=== PATIENT | female | born 1950 | race Caucasian/White ===

== ENCOUNTER → 2016-08-11 | Outpatient (CLI) | payer OTHER ==
[~2016-08-11] MED LIST: ASPCH81X PO; CHOL200010 PO; CINN500T PO; GLC500 PO
[2016-08-11 14:18] LABS: ALT/SGPT 58 U/L (12-78); AST/SGOT 49 U/L (15-37); BLOOD UREA NITROGEN 17 mg/dl (7-18); BUN/CREATININE RATIO 17.1 (10-20); CALCIUM 9.1 mg/dl (8.5-10.1); CARBON DIOXIDE 29 mmol/L (21-32); CHLORIDE 102 mmol/L (98-107); GLUCOSE 103 mg/dl (70-99); POTASSIUM 3.9 mmol/L (3.5-5.1); SODIUM 139 mmol/L (136-145)
[2016-08-11 14:20] LABS: ALB/GLOB RATIO 0.9 (0.9-2); ALKALINE PHOSPHATASE 154 U/L (45-117); CHOLESTEROL 211 mg/dl (0-200); HDL CHOLESTEROL 71 mg/dl; LDL CHOLESTEROL CALCULATED 123 mg/dl; TRIGLYCERIDES 86 mg/dl (0-150); VERY LOW DENSITY LIPOPROT CALC 17 mg/dl
[2016-08-11 14:48] LABS: ESTIMATED AVERAGE GLUCOSE 111 mg/dl; HA1C FLAG Normal (Normal)
--- NOTE | 2016-08-18 08:29 | CODING QUERY MEDICAL NECESSITY ---
SUPPORTING DIAGNOSIS NEEDED A supporting diagnosis is required for the test/procedure performed on this patient in order for us to be reimbursed by the patient's insurance. Please provide a supporting diagnosis for the following test/procedure listed below next to the test name along with your signature. *If there is no additional diagnosis for this patient that would support the following test/procedure please document that below next to the test/procedure. Test(s)/Procedure(s) that require a supporting diagnosis: * GLYCATED HEMOGLOBIN DIAGNOSIS: * DOS: 08/11/16 Provider Signature: Date: Thank you Adriana [facility] Information Management Once completed, please kindly fax back to [phone] For questions please call [phone]
== END | disposition home or self-care (01) ==
LOC: C.LABBC 10:14
PROVIDERS: ATTEND Family Medicine
DX: G47.33 Obstructive sleep apnea (adult) (pediatric) (principal); E78.00 Pure hypercholesterolemia, unspecified; R73.03 Prediabetes; Z11.59 Encounter for screening for other viral diseases

== ENCOUNTER → 2016-08-18 | Outpatient (CLI) | payer OTHER ==
[2016-08-18 16:28] LABS: LYME DISEASE AB IGG NEG (NEG)
[2016-08-18 16:29] LABS: LYME DISEASE AB IGM NEG (NEG)
--- NOTE | 2016-08-25 08:37 | CODING QUERY MEDICAL NECESSITY ---
SUPPORTING DIAGNOSIS NEEDED Dr. Carias, A supporting diagnosis is required for the test/procedure performed on this patient in order for us to be reimbursed by the patient's insurance. Please provide a supporting diagnosis for the following test/procedure listed below next to the test name along with your signature. *If there is no additional diagnosis for this patient that would support the following test/procedure please document that below next to the test/procedure. Test(s)/Procedure(s) that require a supporting diagnosis: * ([id number]) VITAMIN D ASSAY DIAGNOSIS: DATE OF SERVICE: 08/18/16 Provider Signature: Date: Thank you Antonio Fagan [facility] Information Management Once completed, please kindly fax back to [phone] For questions please call [phone]
== END | disposition home or self-care (01) ==
LOC: C.LABBC 11:42
PROVIDERS: ATTEND Family Medicine
DX: M25.50 Pain in unspecified joint (principal)

== ENCOUNTER → 2016-10-29 | Day surgery (SDC) | payer OTHER ==
[2016-10-16 12:51] VITALS: Ht 172.7 cm; Wt 78.2 kg
[~2016-10-29] VITALS: Ht 172.7 cm; Wt 78.2 kg
[~2016-10-29] MED LIST changes: +SODIUM CHLORIDE 0.9% 500ML 500 ML IV ONE
--- NOTE | 2016-10-29 14:48 | Endo History and Physical ---
History & Physical Date of Service: Oct 29, 2016. Chief Complaint: SCREENING FOR COLON C.A. Referring Physician: Dr. Le History of Present Illness 66 yo CF who presents for screening colonoscopy. Past Surgical History Hx Cardiac Surgery: No Hx Internal Defibrillator: No Hx Pacemaker: No Hx Abdominal Surgery: Yes (TUBAL LIGATION) Hx of Implantable Prosthesis: No Hx Post-Op Nausea and Vomiting: No Hx Cancer Surgery: No Hx Thoracic Surgery: No Hx Orthopedic: No Hx Urinary Tract Surgery: No Family History None Social History Smoking Status: Former Smoker Hx Substance Use: No Hx Alcohol Use: Yes (RARELY) Allergies Coded Allergies: No Known Allergies (Verified , 10/29/16) Current Medications Reported Home Medications Medications Dose Route/Sig Max Daily Dose Days Date Category Aspirin Chewable (Aspirin) 81 Mg Chew 81 Mg PO QAM 10/16/16 Reported Cinnamon 500 Mg Tab 1 Tab PO BID 10/16/16 Reported Vitamin D (Cholecalciferol) 2,000 Unit Cap 1 Cap PO QAM 10/16/16 Reported Glucophage * (Metformin HCl) 1,000 Mg Tab 1,000 Mg PO BID 09/19/10 Reported Vital Signs Weight (Kilograms): 78.18 Height (Feet): 5 Height (Inches): 8 Date Time Temp Pulse Resp B/P (MAP) Pulse Ox O2 Delivery O2 Flow Rate FiO2 10/29/16 14:13 36.7 85 18 145/89 (107) 94 Room Air Physical Exam General Appearance: WD/WN, no apparent distress Respiratory/Chest: Auscultation: breath sounds normal Cardiovascular: Heart Auscultation: RRR Abdomen: Bowel Sounds: normal Inspection & Palpation: soft, non-distended, no tenderness, guarding & rebound Assessment and Plan Assessment: 66 yo CF who presents for screening colonoscopy. Plan: Proceed with colonoscopy.
--- NOTE | 2016-10-29 15:08 | Discharge Instructions ---
Endoscopy Patient Instructions Date / Procedure(s) Performed Oct 29, 2016. Colonoscopy Allergy Information Coded Allergies: No Known Allergies (Verified , 10/29/16) Discharge Date / Findings Oct 29, 2016. Diverticulosis Internal hemorrhoids Medication Instructions Stopped Medication(s): ASPIRIN LAST DOSE 10/26/16 METFORM LAST DOSE 10/27/16 OK to resume all medications today as prescribed Medications Dose Route/Sig Max Daily Dose Days Date Category Aspirin Chewable (Aspirin) 81 Mg Chew 81 Mg PO QAM 10/16/16 Reported Cinnamon 500 Mg Tab 1 Tab PO BID 10/16/16 Reported Vitamin D (Cholecalciferol) 2,000 Unit Cap 1 Cap PO QAM 10/16/16 Reported Glucophage * (Metformin HCl) 1,000 Mg Tab 1,000 Mg PO BID 09/19/10 Reported Provider Instructions Activity Restrictions - No exercising or heavy lifting for 24 hours. - Do not drink alcohol the day of the procedure. - Do not drive a car or operate machinery until the day after the procedure. - Do not make any important decisions or sign important papers in 24 hours after the procedure. Following Day: - Return to full activity which may include returning to work/school. Diet Start your diet with liquids and light foods (jello, soup, juice, toast). Then eat your usual diet if not nauseated. Treatment For Common After Affects For mild abdominal pain, bloating, or excessive gas: - Rest - Eat lightly - Lie on right side Follow-Up Information Follow-up with as scheduled Anesthesia Information What You Should Know You have had a procedure that required some medicine to reduce anxiety and discomfort. This treatment is called moderate sedation. After receiving the treatment, you may be sleepy, but you will be able to breathe on your own. The effects of the treatment may last for several hours. Follow these instructions along with Activity/Diet recommendations noted above: * Do NOT do anything where dizziness or clumsiness would be dangerous. * Rest quietly at home today, then you can be up and about tomorrow. * Have a responsible person stay with you the rest of today. * You may have had an I.V. today. If so, you may take the dressing off later today. Recommendations Call your doctor if: * Trouble breathing * Continuous vomiting for more than 24 hours * Temperature above 101 degrees * Severe abdominal pain or bloating * Pain not relieved by pain medicine ordered * There is increased drainage or redness from any incision * A large amount of rectal bleeding greater than 2-3 tablespoons. (If you had a polyp/s removed or have hemorrhoids, a small amount of blood - from the rectum is to be expected.) * You have any unanswered questions or concerns. IN THE EVENT OF A SERIOUS EMERGENCY, GO TO THE NEAREST EMERGENCY ROOM Your discharge instructions were prepared by provider Junior Savage. Patient Instructions Signature Page Pamela Storey Patient (or Guardian) Signature/Date: I have read and understand the instructions given to me by my caregivers. Caregiver/RN/Doctor Signature/Date: The above-named patient and/or guardian has received patient instructions on this date. + Original Patient Signature Page (only) stays with chart. Please make copy for patient.
--- NOTE | 2016-10-29 15:12 | GI REPORT ---
Procedure Date: 10/29/2016 2:44 PM THIS REPORT HAS BEEN AMENDED Addendum Number: 1 Addendum Date: 11/08/2016 4:14:38 PM No specimens were obtained during this procedure, and therefore, no pathology is pending. Repeat colonoscopy in 10 years for screening. Procedure: Colonoscopy Indications: Screening for colorectal malignant neoplasm Medicines: Monitored Anesthesia Care Complications: No immediate complications. Estimated Blood Loss: Estimated blood loss: none. Procedure: Pre-Anesthesia Assessment: - Prior to the procedure, a History and Physical was performed, and patient medications and allergies were reviewed. The patient's tolerance of previous anesthesia was also reviewed. The risks and benefits of the procedure and the sedation options and risks were discussed with the patient. All questions were answered, and informed consent was obtained. Prior Anticoagulants: The patient has taken aspirin, last dose was 3 days prior to procedure. ASA Grade Assessment: II - A patient with mild systemic disease. After reviewing the risks and benefits, the patient was deemed in satisfactory condition to undergo the procedure. After I obtained informed consent, the scope was passed under direct vision. Throughout the procedure, the patient's blood pressure, pulse, and oxygen saturations were monitored continuously. The scope was introduced through the anus and advanced to the terminal ileum. The colonoscopy was performed without difficulty. The patient tolerated the procedure well. The quality of the bowel preparation was good. The terminal ileum, ileocecal valve, appendiceal orifice, and rectum were photographed. Findings: Multiple small-mouthed diverticula were found in the sigmoid colon. Non-bleeding internal hemorrhoids were found during retroflexion. The hemorrhoids were small. Impression: - Diverticulosis in the sigmoid colon. - Non-bleeding internal hemorrhoids. - No specimens collected. Recommendation: - Resume previous diet. - Continue present medications. - Repeat colonoscopy for surveillance based on pathology results. - Return to primary care physician as previously scheduled. Junior Savage, DO 10/29/2016 3:11:58 PM This report has been signed electronically. Note Initiated On: 10/29/2016 2:44 PM I attest to the content of the Intraoperative Record and orders documented therein, exceptions below Junior KongRalph Savage, DO 11/08/2016 4:15:09 PM This report has been signed electronically.
[2016-10-29 15:46] VITALS: BP 151/80; PULSE 69; O2SAT 96
--- NOTE | 2016-10-29 15:49 | Anesthesiology Progress Note ---
Anesthesia Post Op Note Date & Time Oct 29, 2016 at 15:49 Vital Signs Pain Intensity: 0 Vital Signs Past 12 Hours Date Time Temp Pulse Resp B/P (MAP) Pulse Ox O2 Delivery O2 Flow Rate FiO2 10/29/16 15:46 69 20 151/80 (103) 96 Room Air 10/29/16 15:28 74 20 152/80 (104) 96 Room Air 10/29/16 15:13 80 20 115/62 (79) 96 Room Air 10/29/16 14:13 36.7 85 18 145/89 (107) 94 Room Air Notes Mental Status: alert / awake / arousable, participated in evaluation Pt Amnestic to Procedure: Yes Nausea / Vomiting: adequately controlled Pain: adequately controlled Airway Patency, RR, SpO2: stable & adequate BP & HR: stable & adequate Hydration State: stable & adequate Anesthetic Complications: no major complications apparent
== END | disposition home or self-care (01) ==
LOC: C.GI 14:00
PROVIDERS: ATTEND Internal Medicine
DX: Z12.11 Encounter for screening for malignant neoplasm of colon (principal); K57.30 Diverticulosis of large intestine without perforation or abscess without bleeding; K64.8 Other hemorrhoids; G47.33 Obstructive sleep apnea (adult) (pediatric); E11.9 Type 2 diabetes mellitus without complications; M19.90 Unspecified osteoarthritis, unspecified site; Z98.51 Tubal ligation status; Z87.891 Personal history of nicotine dependence; Z68.26 Body mass index [BMI] 26.0-26.9, adult

== ENCOUNTER → 2017-09-20 | Outpatient (CLI) | payer OTHER ==
[~2017-09-20] MED LIST changes: -SODIUM CHLORIDE 0.9% 500ML 500 ML IV ONE
[2017-09-20 13:46] LABS: HEMOGLOBIN A1C 5.6 % (4.5-5.6)
[2017-09-20 13:50] LABS: ALT/SGPT 53 U/L (12-78); BLOOD UREA NITROGEN 17 mg/dl (7-18); CALCIUM 8.7 mg/dl (8.5-10.1); CARBON DIOXIDE 27 mmol/L (21-32); CREATININE 0.93 mg/dl (0.60-1.20); GLUCOSE 99 mg/dl (70-99); POTASSIUM 3.7 mmol/L (3.5-5.1); SODIUM 137 mmol/L (136-145)
[2017-09-20 13:53] LABS: CHOLESTEROL 240 mg/dl (0-200); LDL CHOLESTEROL CALCULATED 155 mg/dl
== END | disposition home or self-care (01) ==
LOC: C.LABBC 10:05
PROVIDERS: ATTEND Family Medicine
DX: E78.00 Pure hypercholesterolemia, unspecified (principal); R73.03 Prediabetes; R74.8 Abnormal levels of other serum enzymes

== ENCOUNTER 2021-11-05 03:20 | Observation (INO) ==
[2021-11-05 03:49] LABS: Basophils # (auto) 0.03 K/uL (0-0.2); Basophils % (auto) 0.4 %; Eosinophils # (auto) 0.19 K/uL (0-0.5); Eosinophils % (auto) 2.7 %; Hematocrit (blood only) 45.4 % (37-47); Hemoglobin 15.2 g/dL (12.0-16.0); Immature Granulocytes # (auto) 0.01 K/uL (0.00-0.02); Immature Granulocytes % (auto) 0.1 %; Lymphocytes # (auto) 2.23 K/uL (1.2-3.4); Lymphocytes % (auto) 31.4 %; Mean Corpuscular Hemoglobin 27.7 pg (25-34); Mean Corpuscular Hgb Conc 33.5 g/dL (32-36); Mean Corpuscular Volume 82.8 fL (80-100); Mean Platelet Volume 9.9 fL (7.4-10.4); Monocytes # (auto) 0.68 K/uL (0.11-0.59); Monocytes % (auto) 9.6 %; Neutrophils # (auto) 3.97 K/uL (1.4-6.5); Neutrophils % (auto) 55.8 %; Platelet Count 227 K/uL (130-400); RDW Coefficient of Variation 14.5 % (11.5-14.5); RDW Standard Deviation 44.1 fL (36.4-46.3); Red Blood Count 5.48 M/uL (4.2-5.4); White Blood Count 7.11 K/uL (4.8-10.8)
[2021-11-05] MEDS ORDERED: NITROGLYCERIN SL 0.4 MG/TAB TAB SL STA (03:51)
--- NOTE | 2021-11-05 04:05 | Emergency Department Note ---
History of Present Illness General Chief complaint: Chest Pain Stated complaint: CHEST PRESSURE RIGHT SIDE AND CENTER Time Seen by Provider: 11/05/21 03:41 History of Present Illness Maximum Pain Intensity: 5 71-year-old female presents emergency department with substernal chest pressure that woke her from sleep it is on the right side is nonradiating there is no associated nausea vomiting shortness of breath or abdominal pain. She states that she took a full aspirin prior to arrival. Patient states no history of the same. There are no other mitigating or alleviating factors Home Medications Medication Instructions Recorded Confirmed Type aspirin 81 mg tablet,delayed 81 mg PO DAILY #30 tab 03/08/19 06/12/21 Rx release cholecalciferol (vitamin D3) 50 2,000 units PO DAILY #30 cap 03/08/19 06/12/21 Rx mcg (2,000 unit) capsule cinnamon bark 500 mg capsule 1,000 mg PO DAILY #30 cap 03/08/19 06/12/21 Rx (Cinnamon) multivitamin 1 tab PO DAILY 04/30/20 06/12/21 History metformin 1,000 mg tablet 1,000 mg PO BID #60 tab 09/03/21 Rx Allergies Allergy/AdvReac Type Severity Reaction Status Date / Time No Known Allergies Allergy Verified 06/12/21 07:49 Past Med/Surg History Medical History (Updated 11/05/21 @ 04:44 by Bubba Wick DO) Diverticulosis Hypercholesterolemia Laryngopharyngeal reflux (LPR) JAKE (obstructive sleep apnea) Prediabetes Sensorineural hearing loss (SNHL) of both ears Surgical History (Updated 06/12/21 @ 08:15 by Мария Le MD) History of palate surgery and uvula History of tubal ligation Status post cataract extraction [place] teeth extracted Family History Father Myocardial infarction Diabetes Heart disease Mother Parkinson disease Denies family history of Ovarian cancer Prostate cancer Breast cancer Colorectal cancer Social History Smoking Status: Never smoker Tobacco Type: Cigarettes Age Started Using Tobacco: 14; Age Quit Using Tobacco: 39; packs per day: 1; Years Smoked: 25; Cigarettes Per Day: 40; Number of Years Since Quit: 31; Second Hand Exposure: Yes; Hx Alcohol Use: Yes Alcohol type: wine Alcohol Intake Frequency: Monthly or Less Hx Substance Use: No Preferred Language: [place] Citizen Communication Ability: Effective Visual Impairment: No Limitations Hearing Ability: Hard of Hearing Outsole Splicer Required: No marital status: Current Living Situation: Spouse current occupational status: retired current occupation: Former teacher How many Children do You have: 2 Feels Safe at Home: Yes Childhood Exposure to Second-Hand Smoke: Yes caffeine: Yes during the past year weight has: remained stable Dental Care, Regularly: Yes Physical Activity Frequency: Daily Seatbelt Use: always Sunscreen Use: Yes Assistive Devices: Glasses Review of Systems A total of 10 systems reviewed and were otherwise negative Constitutional: no fever Respiratory: no cough and no dyspnea Cardiovascular: + chest pain Gastrointestinal: no abdominal pain Physical Exam Vital Signs Vital Signs - 24 hr 11/05/21 03:23 11/05/21 03:37 11/05/21 03:39 Temperature 36.6 C Temperature Source Temporal Artery Scan Pulse Rate 72 66 Pulse Rate [Finger] 66 Respiratory Rate 20 17 Respiratory Effort / Characteristics Non-Labored Spontaneous Respiratory Depth Normal Blood Pressure 218/112 H Blood Pressure [Right Arm] 215/106 H Blood Pressure Mean 147 Blood Pressure Mean [Right Arm] 142 Blood Pressure Position Sitting Blood Pressure Position [Right Arm] Lying Pulse Oximetry 97 97 97 Oxygen Delivery Method Room Air Room Air Room Air Sepsis Recent Fever Within 48 Hours No Sepsis New/Unexplained Change in Mental Status N/A Sepsis Action Taken by Nursing No Action Required 11/05/21 03:54 11/05/21 04:01 11/05/21 04:20 Temperature Temperature Source Pulse Rate Pulse Rate [Finger] 61 73 Respiratory Rate 18 18 Respiratory Effort / Characteristics Non-Labored Spontaneous Non-Labored Spontaneous Respiratory Depth Normal Normal Blood Pressure Blood Pressure [Right Arm] 210/120 H 164/102 H 153/96 H Blood Pressure Mean Blood Pressure Mean [Right Arm] 150 122 115 Blood Pressure Position Blood Pressure Position [Right Arm] Lying Lying Lying Pulse Oximetry 97 96 Oxygen Delivery Method Room Air Room Air Sepsis Recent Fever Within 48 Hours Sepsis New/Unexplained Change in Mental Status Sepsis Action Taken by Nursing 11/05/21 05:21 Temperature Temperature Source Pulse Rate Pulse Rate [Finger] 63 Respiratory Rate 17 Respiratory Effort / Characteristics Non-Labored Spontaneous Respiratory Depth Normal Blood Pressure Blood Pressure [Right Arm] 138/76 Blood Pressure Mean Blood Pressure Mean [Right Arm] 96 Blood Pressure Position Blood Pressure Position [Right Arm] Lying Pulse Oximetry 96 Oxygen Delivery Method Room Air Sepsis Recent Fever Within 48 Hours Sepsis New/Unexplained Change in Mental Status Sepsis Action Taken by Nursing VITAL SIGNS - Vital signs and nursing notes were reviewed. GENERAL - no acute distress. Communicates well with provider and answers questions appropriately. SKIN - Without rashes. HEAD - NC/AT. EYES - PERRL with EOMI bilaterally. Sclera anicteric. Palpebral conjunctiva pink and moist with no injection noted. EARS - No deformities of external structures noted on gross examination bilaterally. NOSE - Midline and without cyanosis. No epistaxis or purulent drainage noted. Septum midline without deviation or septal hematoma noted. MOUTH/OROPHARYNX - Without perioral cyanosis. Buccal mucosa pink and moist NECK - Neck with FROM. Supple to palpation. LUNGS - Chest wall symmetric without accessory muscle use, intercostals retractions, or central cyanosis. Normal vesicular breath sounds CTA B/L. No wheezes, rales, or rhonchi appreciated. CARDIAC - RRR with S1/S2. No murmur, rubs, or gallops appreciated. ABDOMEN - Abdominal contour soft without pulsations or visible masses. BS normoactive all four quadrants. No tenderness, palpable masses, hepatosplenomega ly, or ascites noted. EXTREMITIES - No clubbing or peripheral cyanosis. No pretibial edema present.+ 5/5 strength noted in UE/LE bilaterally. NEUROLOGIC - Cranial nerves II through XII grossly intact. Sensory intact to light touch throughout. PSYCH - A&Ox3 and cooperates fully with examiner. Pt is very pleasant and interacts well with examiner. Course Reevaluation(s) Reevaluation #1: Patient had taken aspirin prior to arrival, patient was given 1 nitro sublingual her blood pressure is 153/79, resting in no current distress. Time: 05:35 Consultations Consultation #1: Discussed with the hospitalist from [facility] for admission at 5 AM Administered Medications Discontinued Medications Nitroglycerin (Nitroglycerin Sl 0.4 Mg/Tab Tab) 0.4 mg SL NOW STA Stop: 11/05/21 03:52 Last Admin: 11/05/21 03:55 Dose: 0.4 mg Documented by: [id number] Medical Decision Making Medical Records Attestation: I reviewed the patient's medical records. Laboratory Data Attestation: I reviewed the patient's lab results. Result diagrams: 11/05/21 03:32 11/05/21 03:32 Lab Results 11/05/21 11/05/21 11/05/21 Range/Units 03:32 03:32 04:47 WBC 7.11 (4.8-10.8) K/uL RBC 5.48 H (4.2-5.4) M/uL Hgb 15.2 (12.0-16.0) g/dL Hct 45.4 (37-47) % MCV 82.8 (80-100) fL MCH 27.7 (25-34) pg MCHC 33.5 (32-36) g/dL RDW Std Deviation 44.1 (36.4-46.3) fL RDW Coeff of [place]ha 14.5 (11.5-14.5) % Plt Count 227 (130-400) K/uL MPV 9.9 (7.4-10.4) fL Immature Gran % (Auto) 0.1 % Neut % (Auto) 55.8 % Lymph % (Auto) 31.4 % [place] % (Auto) 9.6 % Eos % (Auto) 2.7 % Baso % (Auto) 0.4 % Neut # (Auto) 3.97 (1.4-6.5) K/uL Lymph # (Auto) 2.23 (1.2-3.4) K/uL [place] # (Auto) 0.68 H (0.11-0.59) K/uL Eos # (Auto) 0.19 (0-0.5) K/uL Baso # (Auto) 0.03 (0-0.2) K/uL Immature Gran # (Auto) 0.01 (0.00-0.02) K/uL Sodium 138 (136-145) mmol/L Potassium 3.6 (3.5-5.1) mmol/L Chloride 103 (98-107) mmol/L Carbon Dioxide 27 (21-32) mmol/L Anion Gap 8 (3-11) BUN 19 (6-23) mg/dl Creatinine 0.90 (0.6-1.2) mg/dl Est Cr Clr Drug Dosing 64.1 ml/min Est GFR ( Amer) 75.1 ml/min Est GFR (Non-Af Amer) 64.8 ml/min BUN/Creatinine Ratio 21.1 H (10-20) Glucose 110 H (70-99(Fasting)) mg/dl Calcium 9.1 (8.5-10.1) mg/dl Total Bilirubin 0.6 (0.2-1.0) mg/dl AST 38 (13-39) U/L ALT 31 (7-52) U/L Alkaline Phosphatase 92 (34-104) U/L Troponin I High Sens 8.1 (0-14) pg/ml Total Protein 7.9 (6.0-8.3) gm/dl Albumin 4.3 (3.4-5.0) gm/dl Globulin 3.6 (2.5-4.0) gm/dl Albumin/Globulin Ratio 1.2 (0.9-2) Lipase 51 (11-82) U/L SARS-CoV-2, RNA, NAAT NEGATIVE (NEGATIVE) Imaging Data Attestation: I personally reviewed and interpreted this imaging study as follows: My Impression: Chest x-ray interpreted by me normal mediastinum negative for infiltrate negative for pneumothorax no effusions ECG Data Attestation: I personally reviewed and interpreted this ECG as follows: Additional Comments: EKG interpreted by me normal sinus rhythm rate of [address]-T change no obvious ST segment elevation or depression normal intervals normal axis MDM Narrative Medical decision making differential diagnosis includes angina unstable angina acute coronary syndrome acute NH musculoskeletal chest pain GERD reflux. Plan is to check cardiac labs, admit Impression & Plan Chest pain, Hypertension Discharge Plan Visit Data Chief Complaint: Chest Pain Stated Complaint: CHEST PRESSURE RIGHT SIDE AND CENTER ED Provider: Bubba Wick Discharge Problem: Chest pain, Hypertension Patient Disposition: Being Evaluated by Hospitalist Forms Stand Alone Forms: My [facility] Prescriptions Prescriptions: No Action aspirin 81 mg tablet,delayed release (DR/EC) 81 mg PO DAILY Qty: 30 RF: 2 cinnamon bark [Cinnamon] 500 mg capsule 1,000 mg PO DAILY Qty: 30 RF: 0 cholecalciferol (vitamin D3) 2,000 unit capsule 2,000 units PO DAILY Qty: 30 RF: 0 metformin 1,000 mg tablet 1,000 mg PO BID Qty: 60 RF: 5 multivitamin Tablet 1 tab PO DAILY RF: 0 Referrals Referrals: Мария Le MD [Primary Care Provider] - Discharge Problem: Chest pain Qualifiers: Chest pain type: precordial pain Qualified Code(s): R07.2 - Precordial pain Hypertension Qualifiers: Hypertension type: unspecified Qualified Code(s): I10 - Essential (primary) hypertension
[2021-11-05 04:14] LABS: Albumin Globulin Ratio 1.2 (0.9-2); Albumin Level 4.3 gm/dl (3.4-5.0); BUN Creatinine Ratio 21.1 (10-20); Bilirubin,Total 0.6 mg/dl (0.2-1.0); Calcium 9.1 mg/dl (8.5-10.1); Creatinine Clr Calc Pharmacy 64.1 ml/min; Est GFR (African American) 75.1 ml/min; Est GFR (Non-African American) 64.8 ml/min; Globulin 3.6 gm/dl (2.5-4.0); Potassium 3.6 mmol/L (3.5-5.1); Total Protein 7.9 gm/dl (6.0-8.3)
[2021-11-05 04:16] LABS: Troponin I High Sensitivity 8.1 pg/ml (0-14)
--- NOTE | 2021-11-05 04:49 | History & Physical Report ---
Date of Service November 05, 2021 Assessment & Plan (1) Chest pain: Plan: 71yo female with a history of HTN, HLD, prediabetes, and JAKE presents with a one-day history of central chest pressure that radiates to her right abdomen and flank. Chest pressure Four-hour history of chest pressure in a patient with multiple cardiac risk factors including HTN, HLD, JAKE, and positive family history BP on arrival 218/112 which has since improved to 130s/70s, vitals otherwise stable upon arrival to ED and since EKG: NSR, no overt ischemic change appreciated Initial hsTroponin negative, repeat pending Electrolytes wnl Patient already took ASA prior to arrival; patient was given nitrostat in the ED but says her symptoms persisted about an hour before spontaneously resolving Admit to med/tele Nitropaste prn Continue to monitor HTN As above, BP 218/112 on admission, has since improved to 130s/70s Not on antihypertensives at home Continue aspirin; outpatient follow-up recommended HLD: not currently treated, but is actively followed by patient's PCP; outpatient follow-up recommended Prediabetes: metformin held on admission; will hold off on ISS because patient's most recent A1c was 5.6% (05/2021) JAKE: CPAP intolerant, per patient; outpatient follow-up recommended, could consider the Inspire device FEN: heart-healthy diet Code status: DNR/DNI DVT ppx: SCDs Dispo: med/tele (2) Hypertension: (3) Hypercholesterolemia: (4) JAKE (obstructive sleep apnea): (5) Prediabetes: History of Present Illness Primary Care Provider: Мария Le MD 71yo female with a history of HTN, HLD, prediabetes, and JAKE presents with a four-hour history of central chest pressure. The chest pressure woke patient up from sleep around 01:30 today. Patient describes it as a dull pressure under her right breast which does not radiate. Rates it a 4/5 in intensity. Patient had a brief episode of nausea and dry heaving but this resolved after about a minute. Patient denies other symptoms including fever, chills, headache, change in vision, SOB, abdominal pain, diarrhea, lightheadedness, weakness, dizziness, or other symptoms. Patient took ASA 325mg prior to arrival. Patient notes her father had a quadruple-bypass surgery but denies any other family cardiac history. At the time of interview (04:45) patient notes her symptoms have completely resolved. Allergies Allergy/AdvReac Type Severity Reaction Status Date / Time No Known Allergies Allergy Verified 11/05/21 06:19 Home Medications Medication Instructions Recorded Confirmed Type multivitamin 1 tab PO QAM 04/30/20 11/05/21 History aspirin 81 mg tablet,delayed 81 mg PO QDD 11/05/21 11/05/21 History release cholecalciferol (vitamin D3) 50 2,000 units PO QAM 11/05/21 11/05/21 History mcg (2,000 unit) capsule cinnamon bark 500 mg capsule 1,000 mg PO QAM 11/05/21 11/05/21 History (Cinnamon) metformin 1,000 mg tablet 1,000 mg PO BIDM 11/05/21 11/05/21 History Past Med/Surg History Medical History (Updated 11/05/21 @ 04:44 by Bubba Wick DO) Diverticulosis Hypercholesterolemia Laryngopharyngeal reflux (LPR) JAKE (obstructive sleep apnea) Prediabetes Sensorineural hearing loss (SNHL) of both ears Surgical History (Updated 06/12/21 @ 08:15 by Мария Le MD) History of palate surgery and uvula History of tubal ligation Status post cataract extraction [place] teeth extracted Family History Father Myocardial infarction Diabetes Heart disease Mother Parkinson disease Denies family history of Ovarian cancer Prostate cancer Breast cancer Colorectal cancer Social History Smoking Status: Never smoker Tobacco Type: Cigarettes Age Started Using Tobacco: 14; Age Quit Using Tobacco: 39; packs per day: 1; Years Smoked: 25; Cigarettes Per Day: 40; Number of Years Since Quit: 31; Second Hand Exposure: Yes; Hx Alcohol Use: Yes Alcohol type: wine Alcohol Intake Frequency: Monthly or Less Hx Substance Use: No Preferred Language: Ukrainian Communication Ability: Effective Visual Impairment: No Limitations Hearing Ability: Hard of Hearing Apparel Cutter Required: No marital status: Current Living Situation: Spouse current occupational status: retired current occupation: Former teacher How many Children do You have: 2 Feels Safe at Home: Yes Childhood Exposure to Second-Hand Smoke: Yes caffeine: Yes during the past year weight has: remained stable Dental Care, Regularly: Yes Physical Activity Frequency: Daily Seatbelt Use: always Sunscreen Use: Yes Assistive Devices: Glasses Physical Exam Physical Exam: Constitutional: well-appearing, no acute distress CV: regular rhythm, no murmur appreciated, extremities well-perfused, no LE edema Resp: CTABL, no wheezes/rales/rhonchi appreciated, no increased work of breathing GI: soft, nondistended, nontender, BS normoactive MSK: no gross deformities appreciated Skin: warm, dry, no rash appreciated Neuro: alert, oriented, no focal neurologic deficit appreciated Results & Data Results & Data ([facility]) Vital Signs (Past 12 Hours) Vital Signs Temp Pulse Pulse Resp BP BP Pulse Ox 11/05/21 04:20 153/96 H 11/05/21 04:01 73 18 164/102 H 96 11/05/21 03:54 61 18 210/120 H 97 11/05/21 03:39 97 11/05/21 03:37 66 66 17 215/106 H 97 11/05/21 03:23 36.6 C 72 20 218/112 H 97 Supervising Physician Co-Signing Physician Notes Attending addendum: I have physically seen this patient, have supervised the medical residents activities, and agree with the H&P unless as otherwise noted. Assessment and Plan: Atypical chest pain/hypertension- The patient will be admitted to telemetry for serial cardiac enzymes, serial EKG's, cardiac rhythm monitoring and a 2-D echocardiogram with Dopplers. Additional risk factors including hyperlipidemia and prediabetes Aspirin 81 mg daily Nitroglycerin sublingual every 5 minutes as needed chest pain Check a fasting lipid panel and hemoglobin A1c Remaining orders and notations as noted Resident Activity Tracking Resident Involvement: Resident Care Provided and Production Operator Coverage Note Care Provided: Adult Hospital Medicine (1) Chest pain Chest pain type: precordial pain Qualified Code(s): R07.2 - Precordial pain (2) Hypertension Hypertension type: unspecified Qualified Code(s): I10 - Essential (primary) hypertension
[2021-11-05] MEDS ORDERED: ONDANSETRON INJ 2 MG/ML 2 ML VIAL IV PRN (06:37)
[2021-11-05] MEDS ORDERED: ACETAMINOPHEN 325 MG TAB PO PRN (06:37)
--- NOTE | 2021-11-05 07:02 | XRay Report ---
XR chest 1V portable CLINICAL HISTORY: Atypical chest pain TECHNIQUE: Single frontal radiograph of the chest was obtained. Comparison: None available at the time of this dictation. FINDINGS: No lines and tubes are seen. The cardiomediastinal silhouette is normal. The lungs are clear. No evid ence of pleural effusion or pneumothorax. IMPRESSION: No acute chest disease. ACT 112: Negative or not required by law. Electronically signed by: Kaushal Nunn M.D. 11/05/2021 7:00 AM
--- NOTE | 2021-11-05 07:28 | Discharge Summary ---
Date of Service November 05, 2021 Admission HPI Per Admitting Provider 71yo female with a history of HTN, HLD, prediabetes, and JAKE presents with a four-hour history of central chest pressure. The chest pressure woke patient up from sleep around 01:30 today. Patient describes it as a dull pressure under her right breast which does not radiate. Rates it a 4/5 in intensity. Patient had a brief episode of nausea and dry heaving but this resolved after about a minute. Patient denies other symptoms including fever, chills, headache, change in vision, SOB, abdominal pain, diarrhea, lightheadedness, weakness, dizziness, or other symptoms. Patient took ASA 325mg prior to arrival. Patient notes her father had a quadruple-bypass surgery but denies any other family cardiac history. At the time of interview (04:45) patient notes her symptoms have completely resolved. Admission Exam Per Admitting Provider Constitutional: well-appearing, no acute distress CV: regular rhythm, no murmur appreciated, extremities well-perfused, no LE edema Resp: CTABL, no wheezes/rales/rhonchi appreciated, no increased work of breathing GI: soft, nondistended, nontender, BS normoactive MSK: no gross deformities appreciated Skin: warm, dry, no rash appreciated Neuro: alert, oriented, no focal neurologic deficit appreciated Principal Diagnosis noncardiac chest pain Discharge Exam General: 71-year old female who is alert, oriented, and appears in no acute distress. HEENT: NCAT. - Eyes - Sclera are white, anicteric, and without injection. - Mouth - MMM - Neck - supple, no appreciable JVD Cardiac: Normal rate and regular rhythm; S1 and S2 present with no murmurs, rubs, or gallops. Pulmonary: Good respiratory effort with symmetric expansion of the chest. No use of accessory muscles. Lungs were clear to auscultation bilaterally with no crackles or wheezes. Abdominal: Normoactive bowel sounds. Abdomen was soft, nondistended, and non- tender to palpation. Ness's negative. Chest Wall/Skin: public health technician desulfurizer hand present for exam's entirety after patient consented. Examination of the R breast does not reveal focal abnormalities. The intertriginous area is without TTP over the ribs or with any dermatologic abnormalities. Extremities: Upper and lower extremities are warm and well perfused. No peripheral edema in the lower extremities bilaterally Psych: Well-developed, well-nourished, appropriately dressed for occasion. Behavior is cooperative and appropriate. Affect is WNL. Insight is appropriate. Discharge Data Allergies Allergy/AdvReac Type Severity Reaction Status Date / Time No Known Allergies Allergy Verified 11/05/21 06:19 Consultations 11/05/21 05:08 ED Decision to Admit Stat Hospital Course (1) Chest pain: 71yo female with a history of HTN, HLD, prediabetes, and JAKE presents with a one-day history of RIGHT chest wall pressure that radiated to her flank; during her brief stay, her cardiac work-up (ECGs, troponins were negative). Chest Wall Discomfort Patient reports waking frequently in the night d/t JAKE (does not use CPAP); awoke with R chest wall pain at the inferiormost rib-area along the midclavicular line Four-hour history of chest pressure in a patient with multiple cardiac risk factors including HTN, HLD, JAKE, and positive family history Work-up as follows: BP on arrival 218/112 which lowered back to normal during stay EKG: NSR, no overt ischemic change appreciated; unchanged compared to 2011 high-sensitivity troponin negative x 2 Does report that pain resolved with nitroglycerin given in the ED HEART Score 3 -- low risk for MACE Stress TTE in 2019 reviewed: inferior ST changes with exertion and +HTN, ho wever negative stress TTE Lower suspicion for cardiac etiology given location of pain, negative troponin x 2, absence of ECG changes. Given pain is completely resolved and there were no focal findings on physical exam (skin, palpation), difficult to say whether or not costochondritis may have been a factor -- but considered given reported location. Noted that patient has h/o cholelithiasis; biliary colic a possibility as well. Patient also reports being under significant stress lately with having an NV, son going through divorce - stress/anxiety response also considered. Will attempt to arrange stress TTE (to be done as outpatient) at discharge May wish to consider obtaining RUQ US pending results HTN As above, BP 218/112 on admission, has since improved to 130s/70s Not on antihypertensives at home -- may wish to consider ambulatory blood pressure monitoring to gauge need for RX, as well as further JAKE management Continue aspirin HLD: not currently treated, but is actively followed by patient's PCP; outpatient follow-up recommended Prediabetes: metformin held on admission, resumed at d/c JAKE: CPAP intolerant, per patient; outpatient follow-up recommended especially considering frequent awakenings at night, could consider the Inspire device / sleep medicine consultation Code status: Patient reported identifying their code status as DNR/DNI to the admitting provider. (2) Hypertension: (3) Hypercholesterolemia: (4) JAKE (obstructive sleep apnea): (5) Prediabetes: Total Time Total Time Spent Total Time Spent (In Minutes): 30 Discharge Plan Discharge Items Patient Disposition: Home - Self-Care Reason For Visit: CHEST PRESSURE Discharge Diagnosis: chest discomfort Activity: Per Instructions section Non-emergency contact: Primary Care Provider Call non-emergency contact if: your symptoms worsen, your pain is not controlled, your pain is worsening, your pain is unusual for you and your temperature is above 101 Follow-up/Referrals: Мария Le MD [Primary Care Provider] - Diet: Heart Healthy Addtl Attending Provider Instructions: You were seen in [facility] for evaluation of chest discomfort. Upon arrival here, you underwent several tests to determine the cause of your symptoms. Thankfully, there was no evidence of heart stress/strain on any of your heart monitoring (ECG, heart monitor attached to your chest) or laboratories. Given the location of your pain and the absence of findings on these test, we consider it less likely that your symptoms were due to a cardiac cause. It is possible that the pain may have transiently represented rib pain or spasm of the gallbladder. No medications were changed or added during her stay here. Please follow-up with your PCP within the next 2 weeks to review this visit. At that time, please continue discussions about management of your sleep apnea and blood pressures (as you were noted to have several high readings in the hospitalwhich certainly could be due to stress of the medical setting, but as some of them were quite high, it is worth further investigation). A stress test will be arranged for you prior to your PCP appointment in November. You and your PCP should also discuss whether or not to obtain an ultrasound of the upper part of your right abdomen (as sometimes gallbladder related pain can cause discomfort like this). If you experience any return of this chest pain, palpitations, shortness of breath, lightheadedness, dizziness, feelings or any passout, or other worrisome symptoms, please seek medical attention; if your symptoms are severe, please report to the ER immediately for evaluation. Is a pleasure for caring for you while you are here, we wish you all the best moving forward. Addtl Administration Professional Provider Instructions: You have been scheduled for a cardiac stress echocardiogram test on November 11, at 9:45am. Please do not have anything to eat or drink for the four hours prior to this time. Present to the main entrance of [facility] approximately 30 minutes prior to your scheduled appointment time for registration. Pending Studies at Discharge: No Stand-Alone Forms: My [facility], Smoking Cessation Medications and DC Order Prescriptions: Continued multivitamin Tablet 1 tab PO QAM RF: 0 aspirin 81 mg tablet,delayed release (DR/EC) 81 mg PO QDD RF: 0 metformin 1,000 mg tablet 1,000 mg PO BIDM RF: 0 cinnamon bark [Cinnamon] 500 mg capsule 1,000 mg PO QAM RF: 0 cholecalciferol (vitamin D3) 2,000 unit capsule 2,000 units PO QAM RF: 0 Discharge Orders: Discharge Order (Routine); Ordered 11/05/21 Ordered By: Angelo Sims/Other Patient Handouts: ED Chest Pain, Uncertain Cause Admission Data Admit Date/Time: 11/05/21 05:13 Attending Provider: Angelo Perez Admit Provider: Vladimir Saldivar Primary Care Provider: Мария Le Other Interventions: Discharge Summary Assessment (RN) Last Done: 11/05/21 13:44 Supervising Physician Co-Signing Physician Notes I personally examined the patient and verified all aguero points of history and exam, discussed case, and agree with decision making with Dr Ovalle. Feeling better. Feeling up to going home. Heart score suggests that stress testing can be pursued as an outpatient. Patient agrees. Of note, her blood pressure was higher right before discharge than it had been since earlier in her hospital stay, we were not informed of this, but should be okay for close outpatient follow-up. Vitals noted, in general she is awake and alert pleasant no distress. HEENT normocephalic atraumatic mucous membranes moist. Breathing unlabored no accessory muscle use good effort. Skin shows no rashes no pallor or icterus. Neuro without focal deficits. Atypical chest painMI ruled out with cardiac enzymes, stress test in the near future as outpatient. Otherwise as above. Hypertensionfollow-up in short order was PCP Resident Activity Tracking Resident Involvement: Resident Care Provided Care Provided: Adult Hospital Medicine
[2021-11-05] MEDS ORDERED: ASPIRIN 81 MG ECTAB PO SCH (09:00)
--- NOTE | 2021-11-05 12:06 | Electrocardiogram Report ---
Test Reason : Blood Pressure : / mmHG Vent. Rate : 067 BPM Atrial Rate : 067 BPM P-R Int : 158 ms QRS Dur : 098 ms QT Int : 404 ms P-R-T Axes : 059 022 055 degrees QTc Int : 426 ms Normal sinus rhythm Nonspecific ST and T wave abnormality Abnormal ECG When compared with ECG of 19-SEP-2010 10:51, No significant change was found Confirmed by Jimbo Sheth ([id number]) on 11/05/2021 12:05:49 PM Referred By: REFERRED SELF Confirmed By:Jimbo Sheth
--- NOTE | 2021-11-05 12:43 | Electrocardiogram Report ---
Test Reason : Blood Pressure : / mmHG Vent. Rate : 063 BPM Atrial Rate : 063 BPM P-R Int : 160 ms QRS Dur : 092 ms QT Int : 428 ms P-R-T Axes : 046 018 017 degrees QTc Int : 437 ms Normal sinus rhythm Left atrial enlargement Poor R wave progression, consider anterior NV vs. lead placement vs. LVH Nonspecific T wave abnormality Abnormal ECG When compared with ECG of 05-NOV-2021 03:31, (unconfirmed) Nonspecific T wave abnormality now evident in Inferior leads Nonspecific T wave abnormality now evident in Anterior leads Confirmed by Jimbo Sheth ([id number]) on 11/05/2021 12:42:47 PM Referred By: REFERRED SELF Confirmed By:Jimbo Sheth
--- NOTE | 2021-11-05 17:51 | Billing Data ---
Date of Service November 05, 2021 Coding Level of Care Code 47269 OBS Care - Discharge
--- NOTE | 2021-11-06 04:31 | Billing Data ---
Date of Service November 06, 2021 Coding Level of Care Code INT OBSERVATION CARE 71M LVL 3
== END 2021-11-05 07:50 | disposition home or self-care (01) ==
LOC: EDINP 03:20 → ED 03:20 → SUATTDRO 05:13 → EDINP 07:48